=== PATIENT | male | born 1965 | race African-American/Black ===

== ENCOUNTER 2025-06-09 09:10 | Emergency (ER) | payer OTHER ==
[~2025-06-09] VITALS: Ht 167.6 cm; Wt 136.0 kg
[2025-06-09 09:16] VITALS: O2SAT 99
[2025-06-09 10:08] LABS: CLARITY URINE CLEAR (CLEAR); COLOR URINE YELLOW (YELLOW); GLUCOSE URINE NEGATIVE (NEGATIVE); KETONES URINE NEGATIVE (NEGATIVE); LEUKOCYTE ESTERASE URINE NEGATIVE (NEGATIVE); NITRITE URINE NEGATIVE (NEGATIVE); OCCULT BLOOD URINE 2+ (NEGATIVE); PH URINE 5.5 (4.5-8.0); PROTEIN URINE TRACE (NEGATIVE); SPECIFIC GRAVITY URINE 1.021 (1.005-1.030); UROBILINOGEN URINE 0.2 E.U./dL (0.2-1.0)
[2025-06-09 10:08] LABS: BASOPHILS % 1.2 % (0.0-2.0); EOSINOPHILS % 5.3 % (0.0-5.0); HEMATOCRIT. 47.5 % (42.0-52.0); HEMOGLOBIN. 15.2 g/dL (14.0-18.0); LYMPHOCYTES % 37.2 % (20.0-50.0); MEAN PLATELET VOLUME 7.5 fl (7.4-10.4); MONOCYTES % 7.5 % (2.0-8.0); NEUTROPHILS % 48.8 % (40.0-76.0); PLATELET 247 x1000/uL (130-400); RED BLOOD CELL COUNT 5.84 mill/uL (4.7-6.1); RED CELL DISTRIBUTION WIDTH 14.6 % (11.6-14.6)
[2025-06-09 10:25] LABS: CREATININE 1.0 mg/dL (0.6-1.3); INR 1.1; TROPONIN I HIGH SENSITIVITY 23 ng/L (3.0-53); UREA NITROGEN BLOOD 8 mg/dL (9-23)
[2025-06-09 10:26] LABS: ASPARTATE AMINOTRANSFERASE 23 IU/L (<34)
[2025-06-09 10:27] LABS: BILIRUBIN DIRECT 0.1 mg/dL (<=3.0); BILIRUBIN TOTAL 0.5 mg/dL (0.1-1.0); PROTEIN TOTAL 7.4 g/dL (6.0-8.3)
[2025-06-09 10:33] LABS: MUCUS URINE 2+ /lpf (NONE/TRACE); SQUAMOUS EPITHELIAL CELL URINE FEW /lpf (RARE/1+)
[2025-06-09 10:34] LABS: BACTERIA URINE NONE SEEN; WBC URINE NONE SEEN /hpf (0-2)
[2025-06-09] MEDS: KETOROLAC 30MG/ML VIAL IM ONE (10:41)
[2025-06-09] MEDS: HYDROCODONE/ACETAMINOPHEN 5/325MG TABLET PO ONE (10:42)
[2025-06-09] MEDS ORDERED: METH-653 MT (11:59)
[2025-06-09] MEDS ORDERED: HYDR-4001 MT (11:59)
[2025-06-09 12:57] VITALS: BP 151/91; PULSE 63; RESP 18; TEMP 36.7; O2SAT 99
== END 2025-06-09 12:59 | disposition home or self-care (01) ==
LOC: ER 09:10
DX: M51.16 Intervertebral disc disorders with radiculopathy, lumbar region (principal); I25.10 Atherosclerotic heart disease of native coronary artery without angina pectoris; Z95.5 Presence of coronary angioplasty implant and graft; Z79.899 Other long term (current) drug therapy
CPT/HCPCS: 99285; 74176; 71045; 80076; 80048; 81003; 83880; 83690; 85025; 85610; 84484; 36415; 72100; 93005; 96372; J1885